=== PATIENT | female | born 1970 | race Caucasian/White ===

== ENCOUNTER 2021-10-24 16:16 | Outpatient (REF) | payer OTHER, SELFPAY ==
[2021-10-26 11:51] LABS: COVID-19 RT-PCR UVMMC Result Negative (Negative)
== END 2021-10-24 16:17 | disposition home or self-care (01) ==
LOC: LBN 16:16
PROVIDERS: Visit Provider Nurse Practitioner Family
DX: Z20.822 Contact with and (suspected) exposure to COVID-19 (principal)
CPT/HCPCS: U0003

== ENCOUNTER 2021-10-24 16:47 | Emergency (ER) | payer OTHER, SELFPAY ==
[2021-10-24 16:52] VITALS: BP 149/92; PULSE 84; RESP 16; TEMP 36.3; O2SAT 100
--- NOTE | 2021-10-24 17:01 | ED.GENADUL_ITS ---
Discharge Plan Disposition Patient Disposition: HOME Condition: Improving Discharge Details Clinical Impression: Abdominal pain, Nausea, vomiting, and diarrhea Primary Care Provider: Unknown,Unknown ED Provider: Sandip Ryder Home Meds and New Rx's Prescriptions: New ondansetron HCl [Zofran] 4 mg tablet 4 mg PO Q8H PRNQty: 10 RF: 0 dicyclomine 20 mg tablet 20 mg PO QID Qty: 10 RF: 0 oxycodone-acetaminophen [Percocet] 5-325 mg tablet 1 tab PO Q8H PRNQty: 8 RF: 0 Continued omeprazole 10 mg Capsule,Delayed Release(Dr/Ec) 10 mg PO DAILY RF: 0 atorvastatin 20 mg Tablet 20 mg PO DAILY RF: 0 Discharge Instructions Instructions: Acute Nausea and Vomiting (ED), Acute Diarrhea (ED), Abdominal Pain (ED) Additional Instructions: Zofran, Bentyl, Percocet as directed, remember Percocet may cause drowsiness. You may also take [id number] Imodium as directed. Plenty of fluids to avoid dehydration. Clear liquid diet over the next 1-2 days. After that you may advance slowly to bananas, rice, applesauce, tea, toast. Please watch for new or worsening symptoms and return to the ER for any concerns. Lastly, I have placed you on the care management list to help expedite outpatient primary care follow-up Discharge Data Discharge Date/Time-TO BE ENTERED AT DEPARTURE: 10/24/21 22:08 Medical Decision Making This is a 51-year-old female who reports diffuse abdominal pain, cramping, nausea vomiting and watery diarrhea that began Friday. Plan is to obtain IV access, CBC, CMP, lipase, lactate, urinalysis, give IV fluid and Zofran. Differential is wide currently with intra-abdominal etiology. Patient reports that she is having more severe abdominal cramping. 2 mg IV morphine given Patient reports this helped greatly with her pain, she is now resting comfortably. No nausea whatsoever. Blood cell count is 10.67, lactate of 2.1. Anion gap of 16.5. Patient does appear clinically dry. She will be given a second liter of IV fluid and plan is to obtain CT imaging of her abdomen and pelvis. Urinalysis reveals ketones, 20-50 white blood cells but many epithelial cells. Patient states that she was unable to really get a good urine sample given her watery stools. She denies any dysuria or hematuria. CT imaging reveals thickening of the distal small bowel and a target sign. Also reveals an incidental renal cyst, recommend outpatient ultrasound. Lastly there was mention of her uterus, patient reports hysterectomy. I personally spoke with the radiologist who reports that sometimes it can be normal to have some residual uterine tissue but recommend if she continues to have symptoms a short-term MRI of the pelvis for further evaluation. Repeat lactate is now down to 1.0 and her anion gap closing, now down to 12.5. Case discussed with Dr. Barrett, surgery, aware of the CT finding and laboratory values. She believes that we should treat this as a viral gastroenteritis, clear liquid diet over the next 24-48 hours, then advance to the FLORIN diet. I will provide a single dose of Bentyl now. Patient does report that her cramping is returning, she will also be given 2 mg IV morphine. I will give her a prescription for Zofran and Percocet. We did discuss her incidental findings of the cyst in the potential uterine tissue and she does understand that outpatient MRI and/or ultrasound will be likely indicated through her primary care provider. I did place her on the care management list to help expedite establishing local primary care outpatient follow-up as she did recently moved to the area. Patient once again reports significant improvement of her discomfort with the IV morphine. Clinically she appears well, nontoxic, remains afebrile and hemodynamically stable. Strict discharge and return precautions. This documentation was generated using [email or web address] dictation system, please disregard any oddities of phrase or misspellings. Imaging Data Radiologic Study: Attestation: I personally reviewed and interpreted this imaging study as follows: Imaging: CT Scan Radiologist's impression: Addendum created by Guilelrmo Gandhi MD on 10/24/2021 7:38 PM Eastern Time ([place] & [place]): Discussed findings with RAFFI Ryder the states patient has a history of hysterectomy. There is a 52 x 30 mm soft tissue density within the inferior pelvis posterior to the marginally filled bladder of unclear etiology. Recommend short-term MRI pelvis with contrast to better evaluate. Initial Report created on 10/24/2021 7:06 PM Eastern Time ([place] & [place]): PROCEDURE INFORMATION: Exam: CT Abdomen And Pelvis With Contrast Exam date and time: 10/24/2021 5:40 PM Age: 51 years old Clinical indication: Other: Abd pain, n/v/d TECHNIQUE: Imaging protocol: Computed tomography of the abdomen and pelvis with contrast. Radiation optimization: All CT scans at this facility use at least one of these dose optimization techniques: automated exposure control; mA and/or kV adjustment per patient size (includes targeted exams where dose is matched to clinical indication); or iterative reconstruction. Contrast material: OMNIPAQUE 350; Contrast volume: 100 ml; Contrast route: INTRAVENOUS (IV); COMPARISON: No relevant prior studies available. FINDINGS: Lung base: Unremarkable. Distal mediastinum: Unremarkable. Liver: There is diffuse decreased hepatic attenuation most concerning for hepatic steatosis. No hepatic mass or cyst. Gallbladder and bile ducts: No gallstones. No intra or extrahepatic ductal dilatation. Pancreas: Unremarkable. No pancreatic ductal dilatation. KELLEY PLEITEZLINE Preliminary Radiology Report ASSOCIATE SOFTWARE APPLICATION ENGINEER (QA) DISCREPANCY? If there is a discrepancy between the preliminary and final interpretation, please notify [facility] [employer] via [email or web address]. If you do not have access to our QA portal, call our QA team at [phone] CONFIDENTIALITY STATEMENT This report is intended only for the use of the referring physician, and only in accordance with law, If you received this in error, call [phone] Page 2 of 2 Spleen: No splenomegaly. Adrenal glands: Unremarkable. Kidneys and ureters: Within the superior pole of the right kidney is a partially exophytic 11 mm hypodensity with Hounsfield attenuation of 27, finding not consistent with simple fluid. No nephrolith, hydronephrosis or other renal mass/cyst. Ureters are normal in course, dimension and are without evidence filling defects. Stomach and bowel: Stomach is mildly distended with enteric content. The target sign is apparent with thickening of the distal loops of the distal small bowel, series 5 images 458 through 687 to approximately 8 mm, series 5, image 547 with adjacent fluid/edema. Appendix: Unremarkable with diameter of 6 mm. Intraperitoneal space: No free air. Small amount of free fluid is seen within the right pericolic gutter, adjacent to the distal small bowel and within the pelvis. Vasculature: No aneurysm. There is mild atherosclerotic calcification and athe romatous plaque within the abdominal aorta. Lymph nodes: No lymphadenopathy. Urinary bladder: Marginally filled. Reproductive: Uterus is slightly to patient's left. Ovaries not definitively identified. Bones/joints: No acute osseous injury or underlying osseous mass. Soft tissues: Unremarkable. IMPRESSION: 1. Thickening of the distal small bowel with target sign. This can be seen in any inflammatory disease of the bowel to include ulcerative colitis, C difficile colitis, radiation colitis or ischemic bowel disease. 2. Partially exophytic 11 mm right renal hypodensity which may represent a m inimally proteinaceous/hemorrhagic cyst. Recommend ultrasound evaluation in 3 months. 3. Free fluid. HPI General Mode of arrival: ambulatory . Date/Time Provider Initiated Documentation: 10/24/21 17:00 . Limitations to Documentation: no limitations . Information obtained by: patient . HPI Narrative: This is a 51-year-old female, past medical history of hyperlipidemia, GERD, partial hysterectomy, presenting to the ER for evaluation of abdominal cramping worse in the lower quadrants, nausea, vomiting, diarrhea since Friday evening, concern for dehydration. She was seen at [facility] and sent to the ER for further evaluation. Patient states that she is fully vaccinated, denies recent sick exposure, travel or bad food exposure. She denies fever, chest pain, shortness of breath, back pain, dysuria. She denies any black tarry stools or bright red blood in her stools. She states that she has had extremely watery diarrhea over the past few days. Denies any fsup-zah-hivwabz medications. Patient has never had symptoms like this previously. Reports that the pain is fairly constant, mild to moderate in nature but she does have occasional crampy severe waves of discomfort. Related Data Home Medications Medication Instructions Recorded Confirmed atorvastatin 20 mg PO DAILY 10/24/21 10/24/21 dicyclomine 20 mg PO QID #10 tab 10/24/21 omeprazole 10 mg PO DAILY 10/24/21 10/24/21 ondansetron HCl [Zofran] 4 mg PO Q8H PRN #10 tab 10/24/21 oxycodone-acetaminophen [Percocet] 1 tab PO Q8H PRN #8 tab 10/24/21 Previous Rx's Medication Instructions Recorded dicyclomine 20 mg PO QID #10 tab 10/24/21 ondansetron HCl [Zofran] 4 mg PO Q8H PRN #10 tab 10/24/21 oxycodone-acetaminophen [Percocet] 1 tab PO Q8H PRN #8 tab 10/24/21 Allergies Allergy/AdvReac Type Severity Reaction Status Date / Time No Known Allergies Allergy Verified 10/24/21 16:57 General Stated Complaint: Abd Prob LORIN: 3 Review of Systems Constitutional Constitutional: Reports fatigue, Denies fever(s) and Reports weakness (Generalized) Cardiovascular Cardiovascular: Denies chest pain and Denies dyspnea Respiratory Respiratory: Denies cough and Denies dyspnea Gastrointestinal Gastrointestinal: Reports abdominal pain, Reports diarrhea, Reports nausea and Reports vomiting Genitourinary Genitourinary: Denies dysuria Musculoskeletal Musculoskeletal: Denies back pain Integumentary/Breasts Skin/Breast: Denies rash Neurologic Neurologic: Reports weakness (Generalized) Endocrine Endocrine: Reports fatigue [facility] Active Problem List (Updated 10/24/21 @ 21:57 by RAFFI Chu) Abdominal pain (Acute) Nausea, vomiting, and diarrhea (Acute) Social History Smoking/Tobacco Use Status: Never Smoking risk assessment performed?: Yes Substance use type: does not use Exam Const General: cooperative, healthy appearing, comfortable and no acute distress Orientation: alert and awake [facility] Head: normal to inspection, normocephalic and atraumatic Mouth: moist mucous membranes abnormal (Dry) Eyes General: appearance normal, both eyes and all related structures Conjunctivae: conjunctivae normal Neck Neck: normal visual inspection, trachea midline and supple Resp Effort & Inspection: normal respiratory effort and able to speak in complete sentences Auscultation: clear to auscultation bilaterally Cardio Rate: regular rate Rhythm: regular rhythm GI Inspection: normal to inspection Palpation: soft, not firm, no guarding, no pulsatile masses and tender (Diffuse, worse in the lower quadrants) not at McBurney's point, Stockton's sign negative and with no rebound tenderness Auscultation: normal bowel sounds Back/Spine/Pelvis Back: No back tenderness Skin General skin exam: no rashes or lesions noted Neuro General: patient alert, patient awake, moves all extremities and no focal motor deficits Cognition: normal cognition Speech: speech normal Gait: normal gait Motor: muscle tone normal throughout Sensory Exam: no sensory deficits noted Extrem General: normal to inspection and full ROM Psych Appearance: grossly normal Mental Status: mental status grossly normal Course Vital Signs Vital signs: Vital Signs Temperature 36.3 C L 10/24/21 16:52 Pulse 84 10/24/21 16:52 Respiratory Rate 16 10/24/21 16:52 Blood Pressure 149/92 H 10/24/21 16:52 Pulse Oximetry 100 10/24/21 16:52 Temperature 36.3 C L 10/24/21 16:52 Temperature Source Skin 10/24/21 16:52 Pulse 84 10/24/21 16:52 Respiratory Rate 16 10/24/21 16:52 Respiratory Effort Non-Labored 10/24/21 16:52 Blood Pressure 149/92 H 10/24/21 16:52 Pulse Oximetry 100 10/24/21 16:52 Oxygen Delivery Method Room Air 10/24/21 16:52 Oxygen Flow Rate 0 10/24/21 16:52 Pain Level 10 10/24/21 16:52 PAWSS Have you Been Recently Intoxicated or Drunk Within the Last 30 days?: Yes Have you Ever Experienced Previous Episodes of Alcohol Withdrawal?: No Have you ever Experienced Withdrawal Seizures?: No Have you ever Experienced Delirium Tremens(DT)s?: No Have you ever undergone Alcohol Rehabilitation Treatment (i.e, inpt ot outpatient treatment programs)?: No Have you ever Experienced Blackouts?: No Have you ever Combined Alcohol with other Downers within the last 90 days?: No Have you ever Combined Alcohol with any other Substance of Abuse during the last 90 days?: No Positive Blood Alcohol level on Presentation? [PCS.BAL]: No Evidence of Increased Autonomic Activity (i.e. HR>120, tremor, sweating, agitation, nausea)?: No Result: 1
[2021-10-24 17:20] LABS: Lactate 2.1 mmol/L (0.6-1.4)
[2021-10-24 17:22] LABS: Abs Immature Grans 0.03 10^3/uL (0.0-0.06); Absolute Basophil Count 0.04 10^3/uL (0.0-0.2); Absolute Eosinophil Count 0.04 10^3/uL (0.0-0.7); Absolute Lymphocyte Count 2.82 10^3/uL (1.2-3.4); Absolute Neutrophil Count 6.84 10^3/uL (1.2-6.7); Basophils % 0.4; Eosinophils % 0.4; HCT 46.9 % (36.0-46.0); HGB 16.2 g/dL (11.2-15.7); Immature Grans % 0.3; Lymphocytes % 26.4; MCH 32.2 pg (27.0-33.0); MCHC 34.5 % (32.0-36.0); MCV 93.2 fL (80-95); MPV 9.9 fL (8.0-11.0); Monocytes % 8.4; Neutrophils % 64.1; Nucleated RBC 0 %; Platelet Count 263 10^3/uL (130-400); RBC 5.03 10^6/uL (3.93-5.22); RDW 11.3 % (11.7-14.6); RDW-SD 38.5 fL; WBC 10.67 10^3/uL (4.4-10.8)
--- NOTE | 2021-10-24 17:25 | NUR.NOTE ---
Nursing Note: Pt instructed on giving urine sample, request to try on bedside commode, states for the past days I have not been able to urinate just have bowel movements, provider aware, pt is attempting to give sample.
[2021-10-24 17:35] LABS: ALT 155 U/L (14-59); AST 119 U/L (15-37); Alkaline Phosphatase 62 U/L (46-116); Anion Gap 16.3 mmol/L (3-11); BUN 16 mg/dL (7-18); CO2 18.7 mmol/L (21.0-32.0); CREATININE 0.9 mg/dL (0.55-1.02); Calcium 9.5 mg/dL (8.5-10.1); Chloride 99 mmol/L (98-107); Glucose 154 mg/dL (74-106); Lipase 107 U/L (73-393); Potassium 4.2 mmol/L (3.5-5.1); Sodium 134 mmol/L (136-145); Total Protein 8.7 g/dL (6.4-8.2)
[2021-10-24] MEDS: Normal Saline 1,000 ML 1000 ML IV ×2 (17:52→18:47)
[2021-10-24] MEDS: Ondansetron 4 MG/2 ML VIAL IVP (17:53)
--- NOTE | 2021-10-24 18:06 | NUR.NOTE ---
Pt to CT via stretcher w/tech, IVF discontinued for exam.
[2021-10-24 18:10] LABS: Bilirubin Moderate (Negative); Blood Negative (Negative); Clarity Clear (Clear); Glucose Negative (Negative); Ketones 40 mg/dL (Negative); Leukocyte Esterase Negative (Negative); Nitrite Negative (Negative); Specific Gravity >= 1.030 (1.005-1.025); Urobilinogen 0.2 EU/dL (Up TO 0.2)
[2021-10-24] MEDS: Omnipaque 350 MG/ML 100 ML BTL IJ (18:22)
[2021-10-24] MEDS: Normal Saline Flush 10 ML SYR IVP (18:23)
--- NOTE | 2021-10-24 18:23 | DI.CT_ITS ---
Exam(s) CT ABDOMEN PELVIS W EXAM: CT ABDOMEN PELVIS W CLINICAL HISTORY: abd pain, n/v/d. TECHNIQUE: Imaging Protocol: Axial computed tomography images with coronal and sagittal reformatted images were created and reviewed CONTRAST MATERIAL: Intravenous: Omnipaque 100cc Oral: None COMPARISON: No exams were available for comparison FINDINGS: VISUALIZED LUNG BASES: No nodules nor pleural effusions evident. ABDOMEN: There is no ascites. LIVER: The liver is diffusely hypodense implying steatosis. There are no discrete focal hepatic lesi ons nor dilatation of intrahepatic ducts GALLBLADDER/BILIARY: No obvious gallbladder pathology. CBD is not dilated. PANCREAS: No evidence of pancreatic mass nor dilatation of the pancreatic duct. SPLEEN: Spleen is not enlarged. No obvious intrasplenic lesions. Splenic and portal veins are paten t. ADRENALS: There are no significant adrenal masses. KIDNEYS:There is a benign exophytic cyst off the posterior cortex of the right kidney which measures 10 x 9 millimeters. No solid renal masses. No calculi nor hydronephrosis.. ABDOMINAL AORTA: Abdominal aorta is not enlarged. Mild narrowing at the origin of the SMA noted. No evidence of embolus within this vessel. Celiac and superior mesenteric arteries are patent. LYMPH NODES:There is no retroperitoneal nor paraaortic adenopathy. ABDOMINAL WALL: No evidence of significant anterior abdominal wall nor inguinal hernia. GI: There are numerous abnormal central and right-sided small bowel loops which are grossly edematous , exhibiting bowel wall thickness of 5-6 millimeters and there is a small amount of ascites in the de pendent aspect of the pelvis. This process extends to the ileocecal valve. Also appears to involve the ascending-right side of the colon. Difficult to assess remainder of the colon as it is collapsed . There is a diverticulum off the lateral wall of the sigmoid in the upper left iliac fossa. No div erticulitis evident. Appendix appears unremarkable. PELVIS: LYMPH NODES: There is no intrapelvic nor inguinal adenopathy. REPRODUCTIVE: Age-appropriate URINARY BLADDER: No calculi nor obvious masses evident OSSEOUS: No significant osseous lesions. IMPRESSION: 1. There is severe edema of large amount of small bowel ileal loops extending to and beyond the ileoc ecal valve and also involving the right side of the colon. There is also some ascites which is relat ed to the bowel loop edema here. Main differential diagnosis would be infectious enteritis, inflamma tory bowel disease severe flare up, ischemic disease, post radiation. Study 1st read by Deng [facility] Findings discussed by myself with the ER physician 10/25/2021 8:25 a.m. RADIATION DOSE DELIVERED: 1,107.4mGy.cm Total DLP DATA REPOSITORY: All CT scans at this facility are submitted to the National Radiology Data Registry (NRDR) Dose Index Registry (DIR) with the [employer] (ACR). RADIATION OPTIMIZATION: All CT scans at this facility use at least one of these dose optimization te chniques: automated exposure control; mA and/or kV adjustment per patient size (includes targeted exa ms where dose is matched to clinical indication); or iterative reconstruction.
[2021-10-24 18:26] LABS: Bacteria Many HPF (Negative); C & S Indicated? No/Sq. Contamination; Casts Negative LPF (Negative); Crystals Moderate Amorphous HPF (Negative); Epithelial Cells Many HPF (Negative); Mucus Heavy (Negative); WBC 20-50 HPF (0-5)
--- NOTE | 2021-10-24 18:27 | NUR.NOTE ---
Nursing Note:Pt return from CT, IVF connected & infusing, reports nausea improved. Pt aware of need for bowel specimen, unable to supply at this time, cont. to monitor.
[2021-10-24 18:29] VITALS: BP 164/78; PULSE 79; RESP 20; TEMP 36.6; O2SAT 98
--- NOTE | 2021-10-24 19:06 | DI.VRAD_ITS ---
Addendum created by Guillermo Gandhi MD on 10/24/2021 7:38:57 PM EST: Discussed findings with RAFFI Ryder the states patient has a history of hysterectomy. There is a 52 x 30 mm soft tissue density within the inferior pelvis posterior to the marginally filled bladder of unclear etiology. Recommend short-term MRI pelvis with contrast to better evaluate. Initial report created on 10/24/2021 7:06:09 PM EST: PROCEDURE INFORMATION: Exam: CT Abdomen And Pelvis With Contrast Exam date and time: 10/24/2021 5:40 PM Age: 51 years old Clinical indication: Other: Abd pain, n/v/d TECHNIQUE: Imaging protocol: Computed tomography of the abdomen and pelvis with contrast. Radiation optimization: All CT scans at this facility use at least one of these dose optimization techniques: automated exposure control; mA and/or kV adjustment per patient size (includes targeted exams where dose is matched to clinical indication); or iterative reconstruction. Contrast material: OMNIPAQUE 350; Contrast volume: 100 ml; Contrast route: INTRAVENOUS (IV); COMPARISON: No relevant prior studies available. FINDINGS: Lung base: Unremarkable. Distal mediastinum: Unremarkable. Liver: There is diffuse decreased hepatic attenuation most concerning for hepatic steatosis. No hepatic mass or cyst. Gallbladder and bile ducts: No gallstones. No intra or extrahepatic ductal dilatation. Pancreas: Unremarkable. No pancreatic ductal dilatation. Spleen: No splenomegaly. Adrenal glands: Unremarkable. Kidneys and ureters: Within the superior pole of the right kidney is a partially exophytic 11 mm hypodensity with Hounsfield attenuation of 27, finding not consistent with simple fluid. No nephrolith, hydronephrosis or other renal mass/cyst. Ureters are normal in course, dimension and are without evidence filling defects. Stomach and bowel: Stomach is mildly distended with enteric content. The target sign is apparent with thickening of the distal loops of the distal small bowel, series 5 images 458 through 687 to approximately 8 mm, series 5, image 547 with adjacent fluid/edema. Appendix: Unremarkable with diameter of 6 mm. Intraperitoneal space: No free air. Small amount of free fluid is seen within the right pericolic gutter, adjacent to the distal small bowel and within the pelvis. Vasculature: No aneurysm. There is mild atherosclerotic calcification and atheromatous plaque within the abdominal aorta. Lymph nodes: No lymphadenopathy. Urinary bladder: Marginally filled. Reproductive: Uterus is slightly to patient's left. Ovaries not definitively identified. Bones/joints: No acute osseous injury or underlying osseous mass. Soft tissues: Unremarkable. IMPRESSION: 1. Thickening of the distal small bowel with target sign. This can be seen in any inflammatory disease of the bowel to include ulcerative colitis, C difficile colitis, radiation colitis or ischemic bowel disease. 2. Partially exophytic 11 mm right renal hypodensity which may represent a minimally proteinaceous/hemorrhagic cyst. Recommend ultrasound evaluation in 3 months. 3. Free fluid. Dictated and Authenticated by: Guillermo Gandhi MD. Ordering:ARIC Oropeza MD
[2021-10-24 19:29] VITALS: TEMP 37
--- NOTE | 2021-10-24 19:41 | NUR.NOTE ---
Nursing Note: Pt mediocated w/IV morphine as ordered for abd pain. Stool sample obtained & sent to lab.
[2021-10-24 20:40] LABS: Anion Gap 12.5 mmol/L (3-11); BUN 13 mg/dL (7-18); CO2 21.5 mmol/L (21.0-32.0); CREATININE 0.8 mg/dL (0.55-1.02); Calcium 8.1 mg/dL (8.5-10.1); Chloride 103 mmol/L (98-107); Glucose 123 mg/dL (74-106); Potassium 3.6 mmol/L (3.5-5.1); Sodium 137 mmol/L (136-145)
[2021-10-24 20:47] VITALS: BP 147/82; PULSE 80; RESP 18; TEMP 36.5; O2SAT 99
--- NOTE | 2021-10-24 20:54 | NUR.NOTE ---
Nursing Note:Pt reports abd pain returned /, medicated as ordered, resting on stretcher, call sahu within reach.
[2021-10-24 21:00] LABS: C Diff PCR Negative (Negative)
[2021-10-24] MEDS: Dicyclomine 20 MG TAB PO (21:50)
[2021-10-24 21:52] VITALS: BP 128/76; PULSE 80; RESP 18; TEMP 36.6; O2SAT 99
[2021-10-24] MEDS: Ondansetron O.D.T. 4 MG TABEF, 3 TABS/BTL PO (21:52)
== END 2021-10-24 22:08 | disposition home or self-care (01) ==
PROVIDERS: Emergency Provider Physician Assistant
DX: R10.9 Unspecified abdominal pain (principal); R11.2 Nausea with vomiting, unspecified; R19.7 Diarrhea, unspecified; R18.8 Other ascites; N28.1 Cyst of kidney, acquired
CPT/HCPCS: 36415; 80048; 80053; 83690; 87493; 96361; 96374; 96375; 96376; 99285; 74177; 81003; 81015; 83605; 85025; 99284; J2405; J3490

== ENCOUNTER 2021-10-25 15:26 | Emergency (ER) | payer OTHER, SELFPAY ==
--- NOTE | 2021-10-25 15:32 | DI.CT_ITS ---
Exam(s) CT ABDOMEN PELVIS WO EXAM: CT ABDOMEN PELVIS WO CLINICAL HISTORY: follow up from ct yesterday, pain, n/v/d. TECHNIQUE: Imaging Protocol: Axial computed tomography images with coronal and sagittal reformatted images were created and reviewed. COMPARISON: CT CT ABDOMEN PELVIS W from 10/24/2021 FINDINGS: ABDOMEN: Lung Bases: Normal where visualized. Liver: Fatty infiltration of the liver. No measurable mass. Hepatomegaly. Gallbladder and biliary tract: No radiodense calculus or biliary ductal dilation. High-density materi al within the gallbladder likely reflecting the iodinated contrast from the prior examination. Pancreas: Normal density, no abnormal calcifications or inflammatory process. Spleen: Normal. Kidneys: Normal size, contour and axis.No radiodense stones or obstructive uropathy. Stable right corey al cyst. No follow-up is recommended. Adrenal glands: No mass is seen. Lymph nodes: Mildly enlarged lymph nodes in the right lower quadrant which are likely reactive. Abdominal Aorta: Abdominal portion non-dilated. Atherosclerosis. PELVIS: Bladder:Incompletely distended but grossly unremarkable. Bowel: No evidence of obstruction. There is persistent thickening of the wall of the terminal ileum and distal small bowel. There may be involvement of the cecum and a portion of the ascending colon. No evidence of appendicitis. There is no pneumatosis or mesenteric venous gas. Peritoneal cavity: There is a small amount of pelvic ascites. There is a small amount of fluid in th e right pericolic gutter. No free air. Reproductive organs: Per the patient there has been a prior hysterectomy. There is a persistent soft tissue density in the inferior pelvis posterior to the bladder of unclear etiology. Pelvic ultrasou nd may be considered for further evaluation. Bones: Within normal limits. Soft Tissues: Within normal limits. IMPRESSION: 1. Persistent bowel wall thickening involving the distal small bowel, terminal ileum and proximal col on. Inflammatory or infectious bowel disease is favored. Lymphoma or lymphoproliferative disease ca nnot be excluded. No evidence of bowel obstruction. 2. Hepatomegaly and hepatic steatosis. 3. Pelvic ascites which may be slightly increased compared to the prior examination. 4. Pelvic soft tissue mass is again seen. This may represent a subtotal hysterectomy. Pelvic ultras ound or MRI may be considered for further evaluation. RADIATION DOSE DELIVERED: 1,112.01mGy.cm Total DLP DATA REPOSITORY: All CT scans at this facility are submitted to the National Radiology Data Registry (NRDR) Dose Index Registry (DIR) with the [employer] (ACR). RADIATION OPTIMIZATION: All CT scans at this facility use at least one of these dose optimization te chniques: automated exposure control; mA and/or kV adjustment per patient size (includes targeted exa ms where dose is matched to clinical indication); or iterative reconstruction.
[2021-10-25 15:34] VITALS: BP 133/72; PULSE 83; RESP 16; TEMP 36.5; O2SAT 96
[2021-10-25 16:07] LABS: Bilirubin Small (Negative); Blood Trace-intact (Negative); Clarity Cloudy (Clear); Glucose Negative (Negative); Ketones 40 mg/dL (Negative); Leukocyte Esterase Small (Negative); Nitrite Negative (Negative); Specific Gravity >= 1.030 (1.005-1.025); Urobilinogen 0.2 EU/dL (Up TO 0.2)
[2021-10-25 16:18] LABS: Abs Immature Grans 0.01 10^3/uL (0.0-0.06); Absolute Basophil Count 0.04 10^3/uL (0.0-0.2); Absolute Eosinophil Count 0.17 10^3/uL (0.0-0.7); Absolute Lymphocyte Count 2.64 10^3/uL (1.2-3.4); Absolute Monocyte Count 0.86 10^3/uL (0.1-0.8); Absolute Neutrophil Count 4.66 10^3/uL (1.2-6.7); Basophils % 0.5; HCT 42.5 % (36.0-46.0); HGB 14.3 g/dL (11.2-15.7); Immature Grans % 0.1; Lymphocytes % 31.5; MCH 32.4 pg (27.0-33.0); MCHC 33.6 % (32.0-36.0); MCV 96.2 fL (80-95); MPV 9.7 fL (8.0-11.0); Monocytes % 10.3; Neutrophils % 55.6; Nucleated RBC 0 %; Platelet Count 233 10^3/uL (130-400); RBC 4.42 10^6/uL (3.93-5.22); RDW 11.4 % (11.7-14.6); WBC 8.38 10^3/uL (4.4-10.8)
[2021-10-25 16:23] LABS: Bacteria Many HPF (Negative); C & S Indicated? No/Sq. Contamination; Crystals Negative HPF (Negative); Epithelial Cells Many HPF (Negative); Mucus Negative (Negative); RBC 0-2 HPF (0-2); WBC >50 HPF (0-5)
[2021-10-25 16:33] LABS: ALT 126 U/L (14-59); AST 79 U/L (15-37); Albumin 3.4 g/dL (3.4-5.0); Alkaline Phosphatase 53 U/L (46-116); Anion Gap 9.6 mmol/L (3-11); BUN 10 mg/dL (7-18); CO2 24.4 mmol/L (21.0-32.0); CREATININE 0.8 mg/dL (0.55-1.02); Calcium 8.6 mg/dL (8.5-10.1); Chloride 102 mmol/L (98-107); Glucose 134 mg/dL (74-106); Lipase 210 U/L (73-393); Potassium 3.5 mmol/L (3.5-5.1); Sodium 136 mmol/L (136-145); Total Protein 7.2 g/dL (6.4-8.2)
[2021-10-25] MEDS: Ondansetron 4 MG/2 ML VIAL (16:55)
[2021-10-25] MEDS: Ketorolac 30 MG/ML VIAL IVP (17:00)
--- NOTE | 2021-10-25 17:00 | W.ED.GENAD ---
Discharge Plan Disposition Patient Disposition: HOME Condition: Stable Discharge Details Clinical Impression: Enteritis Primary Care Provider: Unknown,Unknown ED Provider: Kandis Stern Home Meds and New Rx's Prescriptions: Continued omeprazole 10 mg Capsule,Delayed Release(Dr/Ec) 10 mg PO DAILY RF: 0 atorvastatin 20 mg Tablet 20 mg PO DAILY RF: 0 ondansetron HCl [Zofran] 4 mg tablet 4 mg PO Q8H PRNQty: 10 RF: 0 dicyclomine 20 mg tablet 20 mg PO QID Qty: 10 RF: 0 oxycodone-acetaminophen [Percocet] 5-325 mg tablet 1 tab PO Q8H PRNQty: 8 RF: 0 Discharge Instructions Instructions: Enteritis (ED) Additional Instructions: clear liquids, advance as tolerated Stand Alone Forms: Work Release Referrals: Miranda Hoffman DO [OSTEOPATHIC DOCTOR] - Medical Decision Making inital orders placed by Farnaz Ryder who saw patient yesterday and discussed case with Dr Hoffman. On her recommendation he has ordered a ct scan with oral contrast only. after drinking one bottle of oral contrast developed worsening abdominal pain and nausea and had 2 bouts of diarrhea. Medical Records Medical records reviewed: Yes I reviewed the patient's medical records. Imaging Data Radiologic Study: Imaging: CT Scan Radiologist's impression: Exam(s) PROCEDURE INFORMATION: Exam: CT Abdomen And Pelvis Without Contrast Exam date and time: 10/25/2021 5:41 PM Age: 51 years old Clinical indication: Other: F/u form CT yesterday, pain n/v/d TECHNIQUE: Imaging protocol: Computed tomography of the abdomen and pelvis without contrast. COMPARISON: CT ABDOMEN PELVIS W 10/24/2021 6:13 PM FINDINGS: Lungs: Lung bases are clear. Liver: Liver attenuation is low. Negative for mass or abscess. The liver is large, 21 cm in length. Gallbladder and bile ducts: Hyperattenuating material present in the gallbladder, likely contrast from yesterday's exam. No inflammatory change. No ductal dilatation. Pancreas: Normal. No ductal dilation. Spleen: Normal. No splenomegaly. Adrenal glands: Normal. No mass. Kidneys and ureters: Normal. No hydronephrosis. Stomach and bowel: Stomach is collapsed. Small bowel is not dilated. Enteric contrast is administered for the today's exam, and extends through the small bowel and throughout the colon. There is marked wall thickening in the distal ileum, involving approximately 50 cm of the distal bowel. Wall thickening measures up to 0.9 cm. The abnormal wall thickening extends to the ileocecal valve. There is mild adjacent fat stranding and free fluid. The ileocecal valve is mildly hypertrophy. The colonic yusuf are normal in thickness, and there are no focal inflammatory changes in the colon. Appendix: Normal appendix. Intraperitoneal space: Mild free fluid noted in the pelvis and right pericolic gutter, mildly increased from yesterday. Negative for intraperitoneal free air. Negative for abscess. Para negative for portal venous gas. Vasculature: Negative for aneurysm. Mild vascular calcifications. Lymph nodes: Mild mesenteric lymphadenopathy noted in the right lower quadrant. Negative for suspicious retroperitoneal lymphadenopathy. Urinary bladder: Unremarkable as visualized. Reproductive: A soft tissue structure is again noted in the pelvis at the upper vagina between the bladder and rectum. This is unchanged from previous. Both ovaries are visible and appear normal, without cyst or mass. Bones/joints: Unremarkable. No acute fracture. Soft tissues: Negative for abdominal wall hernia or fluid collection. IMPRESSION: 1. Severe enteritis, distal/terminal ileum. Inflammatory bowel disease or infectious enteritis favored. Lymphoma or lymphoproliferative disease not excluded. Ischemia is not excluded, however there is no significant progression and no secondary signs to suggest ischemia such as pneumatosis or mesenteric venous gas. 2. Follow-up to imaging resolution or tissue diagnosis is recommended. The disease involves the terminal ileum, and may be accessible through colonoscopy. 3. Negative for bowel obstruction. 4. Mild increased fat stranding and free fluid from yesterday's exam. 5. Hepatic steatosis, severe. 6. Pelvic soft tissue mass may represent postoperative changes from subtotal hysterectomy and retention of the cervix. Correlate clinically for operative technique. If the cervix has been removed, a careful pelvic physical exam and pelvic MRI are recommended for mass characterisation. Transvaginal ultrasound may be of benefit, but may not add additional information over the CT. Dictated and Authenticated by: Jayesh Jerome MD. Ordering:ARIC Oropeza MD Lab Data Lab results reviewed: Yes I reviewed the patient's lab results. Labs: Laboratory Results - last 24 hr 10/25/21 10/25/21 10/25/21 15:55 16:05 16:05 WBC RBC Hgb Hct MCV MCH MCHC RDW Plt Count MPV Immature Gran % Neutrophils % Lymphocytes % Monocytes % Eosinophils % Basophils % Nucleated RBC % Absolute Neutrophils Absolute Lymphocytes Absolute Monocytes Absolute Eosinophils Absolute Basophils VBG Lactate 1.0 Sodium 136 Potassium 3.5 Chloride 102 Carbon Dioxide 24.4 Anion Gap 9.6 BUN 10 Creatinine 0.8 Estimated GFR/1.73 m2 >= 60.00 Glucose 134 H Calcium 8.6 Total Bilirubin 1.0 AST 79 H ALT 126 H Alkaline Phosphatase 53 Total Protein 7.2 Albumin 3.4 Lipase 210 Urine Color Stacia Urine Clarity Cloudy Urine pH 6.0 Ur Specific [place] >= 1.030 H Urine Protein 30 H Urine Ketones 40 H Urine Blood Trace-intact H Urine Nitrite Negative Urine Bilirubin Small H Urine Urobilinogen 0.2 Ur Leukocyte Esterase Small H Urine RBC 0-2 Urine WBC >50 H Ur Epithelial Cells Many Urine Crystals Negative Urine Bacteria Many Urine Mucus Negative Ur Culture Indicated? No/Sq. Contamination Urine Glucose Negative 10/25/21 16:05 WBC 8.38 RBC 4.42 Hgb 14.3 Hct 42.5 MCV 96.2 H D MCH 32.4 MCHC 33.6 RDW 11.4 L Plt Count 233 MPV 9.7 Immature Gran % 0.1 Neutrophils % 55.6 Lymphocytes % 31.5 Monocytes % 10.3 Eosinophils % 2.0 Basophils % 0.5 Nucleated RBC % 0 Absolute Neutrophils 4.66 Absolute Lymphocytes 2.64 Absolute Monocytes 0.86 H Absolute Eosinophils 0.17 Absolute Basophils 0.04 VBG Lactate Sodium Potassium Chloride Carbon Dioxide Anion Gap BUN Creatinine Estimated GFR/1.73 m2 Glucose Calcium Total Bilirubin AST ALT Alkaline Phosphatase Total Protein Albumin Lipase Urine Color Urine Clarity Urine pH Ur Specific [place] Urine Protein Urine Ketones Urine Blood Urine Nitrite Urine Bilirubin Urine Urobilinogen Ur Leukocyte Esterase Urine RBC Urine WBC Ur Epithelial Cells Urine Crystals Urine Bacteria Urine Mucus Ur Culture Indicated? Urine Glucose HPI General Date/Time Provider Initiated Documentation: 10/25/21 15:32. Limitations to Documentation: no limitations. Information obtained by: patient. HPI Narrative: patient returns to ED after instructed to based on change in previous days imaging report. patient reports that she is feeling better overall. Related Data Home Medications Medication Instructions Recorded Confirmed atorvastatin 20 mg PO DAILY 10/24/21 10/25/21 dicyclomine 20 mg PO QID #10 tab 10/24/21 10/25/21 omeprazole 10 mg PO DAILY 10/24/21 10/25/21 ondansetron HCl [Zofran] 4 mg PO Q8H PRN #10 tab 10/24/21 10/25/21 oxycodone-acetaminophen [Percocet] 1 tab PO Q8H PRN #8 tab 10/24/21 10/25/21 Previous Rx's Medication Instructions Recorded dicyclomine 20 mg PO QID #10 tab 10/24/21 ondansetron HCl [Zofran] 4 mg PO Q8H PRN #10 tab 10/24/21 oxycodone-acetaminophen [Percocet] 1 tab PO Q8H PRN #8 tab 10/24/21 Allergies Allergy/AdvReac Type Severity Reaction Status Date / Time No Known Allergies Allergy Verified 10/25/21 15:38 General Stated Complaint: Abd Prob LORIN: 3 Review of Systems All systems reviewed & are unremarkable except as noted in HPI and below PFSH Active Problem List (Updated 10/25/21 @ 20:42 by Kandis Stern NP) Abdominal pain (Acute) Nausea, vomiting, and diarrhea (Acute) Enteritis (Acute) Social History Smoking/Tobacco Use Status: Never Smoking risk assessment performed?: Yes Substance use type: does not use Exam Const General: cooperative, healthy appearing, comfortable and acute distress mild Nutritional Appearance: overweight Orientation: alert, awake and oriented x3 HENMT Head: normal to inspection, normocephalic and atraumatic Mouth: oral mucosae normal Resp Effort & Inspection: normal respiratory effort Auscultation: clear to auscultation bilaterally Cardio Rate: regular rate Rhythm: regular rhythm GI Inspection: normal to inspection Palpation: no guarding and tender Skin General skin exam: no rashes or lesions noted Neuro General: patient alert, patient awake and patient oriented x3 Cognition: normal cognition Speech: speech normal Gait: normal gait Extrem General: normal to inspection, full ROM and no pedal edema Course Vital Signs Vital signs: Vital Signs Temperature 36.5 C 10/25/21 15:34 Pulse 83 10/25/21 15:34 Respiratory Rate 16 10/25/21 15:34 Blood Pressure 133/72 10/25/21 15:34 Pulse Oximetry 96 10/25/21 15:34 Temperature 36.5 C 10/25/21 15:34 Temperature Source Skin 10/25/21 15:34 Pulse 83 10/25/21 15:34 Respiratory Rate 16 10/25/21 15:34 Respiratory Effort Non-Labored 10/25/21 15:34 Blood Pressure 133/72 10/25/21 15:34 Blood Pressure Position Sitting 10/25/21 15:34 Pulse Oximetry 96 10/25/21 15:34 Oxygen Delivery Method Room Air 10/25/21 15:34 Oxygen Flow Rate 0 10/25/21 15:34 Pain Level 7 10/25/21 15:34 Lab/Test Results Lab/Test Results: Laboratory Tests Range/Units 10/25/21 10/25/21 10/25/21 15:55 16:05 16:05 WBC (4.4-10.8) 10^3/uL RBC (3.93-5.22) 10^6/uL Hgb (11.2-15.7) g/dL Hct (36.0-46.0) % MCV (80-95) fL MCH (27.0-33.0) pg MCHC (32.0-36.0) % RDW (11.7-14.6) % Plt Count (130-400) 10^3/uL MPV (8.0-11.0) fL Immature Gran % Neutrophils % Lymphocytes % Monocytes % Eosinophils % Basophils % Nucleated RBC % % Absolute Neutrophils (1.2-6.7) 10^3/uL Absolute Lymphocytes (1.2-3.4) 10^3/uL Absolute Monocytes (0.1-0.8) 10^3/uL Absolute Eosinophils (0.0-0.7) 10^3/uL Absolute Basophils (0.0-0.2) 10^3/uL VBG Lactate (0.6-1.4) mmol/L 1.0 Sodium (136-145) mmol/L 136 Potassium (3.5-5.1) mmol/L 3.5 Chloride (98-107) mmol/L 102 Carbon Dioxide (21.0-32.0) mmol/L 24.4 Anion Gap (3-11) mmol/L 9.6 BUN (7-18) mg/dL 10 Creatinine (0.55-1.02) mg/dL 0.8 Estimated GFR/1.73 m2 (mL/min/1.73m2) >= 60.00 Glucose (74-106) mg/dL 134 H Calcium (8.5-10.1) mg/dL 8.6 Total Bilirubin (0.2-1.0) mg/dL 1.0 AST (15-37) U/L 79 H ALT (14-59) U/L 126 H Alkaline Phosphatase (46-116) U/L 53 Total Protein (6.4-8.2) g/dL 7.2 Albumin (3.4-5.0) g/dL 3.4 Lipase (73-393) U/L 210 Urine Color (Yellow) Stacia Urine Clarity (Clear) Cloudy Urine pH (5-8) 6.0 Ur Specific [place] (1.005-1.025) >= 1.030 H Urine Protein (Negative) mg/dL 30 H Urine Ketones (Negative) mg/dL 40 H Urine Blood (Negative) Trace-intact H Urine Nitrite (Negative) Negative Urine Bilirubin (Negative) Small H Urine Urobilinogen (Up TO 0.2) EU/dL 0.2 Ur Leukocyte Esterase (Negative) Small H Urine RBC (0-2) HPF 0-2 Urine WBC (0-5) HPF >50 H Ur Epithelial Cells (Negative) HPF Many Urine Crystals (Negative) HPF Negative Urine Bacteria (Negative) HPF Many Urine Mucus (Negative) Negative Ur Culture Indicated? No/Sq. Contamination Urine Glucose (Negative) mg/dL Negative Range/Units 10/25/21 16:05 WBC (4.4-10.8) 10^3/uL 8.38 RBC (3.93-5.22) 10^6/uL 4.42 Hgb (11.2-15.7) g/dL 14.3 Hct (36.0-46.0) % 42.5 MCV (80-95) fL 96.2 H D MCH (27.0-33.0) pg 32.4 MCHC (32.0-36.0) % 33.6 RDW (11.7-14.6) % 11.4 L Plt Count (130-400) 10^3/uL 233 MPV (8.0-11.0) fL 9.7 Immature Gran % 0.1 Neutrophils % 55.6 Lymphocytes % 31.5 Monocytes % 10.3 Eosinophils % 2.0 Basophils % 0.5 Nucleated RBC % % 0 Absolute Neutrophils (1.2-6.7) 10^3/uL 4.66 Absolute Lymphocytes (1.2-3.4) 10^3/uL 2.64 Absolute Monocytes (0.1-0.8) 10^3/uL 0.86 H Absolute Eosinophils (0.0-0.7) 10^3/uL 0.17 Absolute Basophils (0.0-0.2) 10^3/uL 0.04 VBG Lactate (0.6-1.4) mmol/L Sodium (136-145) mmol/L Potassium (3.5-5.1) mmol/L Chloride (98-107) mmol/L Carbon Dioxide (21.0-32.0) mmol/L Anion Gap (3-11) mmol/L BUN (7-18) mg/dL Creatinine (0.55-1.02) mg/dL Estimated GFR/1.73 m2 (mL/min/1.73m2) Glucose (74-106) mg/dL Calcium (8.5-10.1) mg/dL Total Bilirubin (0.2-1.0) mg/dL AST (15-37) U/L ALT (14-59) U/L Alkaline Phosphatase (46-116) U/L Total Protein (6.4-8.2) g/dL Albumin (3.4-5.0) g/dL Lipase (73-393) U/L Urine Color (Yellow) Urine Clarity (Clear) Urine pH (5-8) Ur Specific [place] (1.005-1.025) Urine Protein (Negative) mg/dL Urine Ketones (Negative) mg/dL Urine Blood (Negative) Urine Nitrite (Negative) Urine Bilirubin (Negative) Urine Urobilinogen (Up TO 0.2) EU/dL Ur Leukocyte Esterase (Negative) Urine RBC (0-2) HPF Urine WBC (0-5) HPF Ur Epithelial Cells (Negative) HPF Urine Crystals (Negative) HPF Urine Bacteria (Negative) HPF Urine Mucus (Negative) Ur Culture Indicated? Urine Glucose (Negative) mg/dL PAWSS Have you Been Recently Intoxicated or Drunk Within the Last 30 days?: No Have you Ever Experienced Previous Episodes of Alcohol Withdrawal?: No Have you ever Experienced Withdrawal Seizures?: No Have you ever Experienced Delirium Tremens(DT)s?: No Have you ever undergone Alcohol Rehabilitation Treatment (i.e, inpt ot outpatient treatment programs)?: No Have you ever Experienced Blackouts?: No Have you ever Combined Alcohol with other Downers within the last 90 days?: No Have you ever Combined Alcohol with any other Substance of Abuse during the last 90 days?: No Positive Blood Alcohol level on Presentation? [PCS.BAL]: No Evidence of Increased Autonomic Activity (i.e. HR>120, tremor, sweating, agitation, nausea)?: No Result: 0
[2021-10-25] MEDS: HYDROmorphone 2 MG/ML VIAL 0.5 MG IVP (19:09)
--- NOTE | 2021-10-25 19:28 | DI.VRAD_ITS ---
PROCEDURE INFORMATION: Exam: CT Abdomen And Pelvis Without Contrast Exam date and time: 10/25/2021 5:41 PM Age: 51 years old Clinical indication: Other: F/u form CT yesterday, pain n/v/d TECHNIQUE: Imaging protocol: Computed tomography of the abdomen and pelvis without contrast. COMPARISON: CT ABDOMEN PELVIS W 10/24/2021 6:13 PM FINDINGS: Lungs: Lung bases are clear. Liver: Liver attenuation is low. Negative for mass or abscess. The liver is large, 21 cm in length. Gallbladder and bile ducts: Hyperattenuating material present in the gallbladder, likely contrast from yesterday's exam. No inflammatory change. No ductal dilatation. Pancreas: Normal. No ductal dilation. Spleen: Normal. No splenomegaly. Adrenal glands: Normal. No mass. Kidneys and ureters: Normal. No hydronephrosis. Stomach and bowel: Stomach is collapsed. Small bowel is not dilated. Enteric contrast is administered for the today's exam, and extends through the small bowel and throughout the colon. There is marked wall thickening in the distal ileum, involving approximately 50 cm of the distal bowel. Wall thickening measures up to 0.9 cm. The abnormal wall thickening extends to the ileocecal valve. There is mild adjacent fat stranding and free fluid. The ileocecal valve is mildly hypertrophy. The colonic yusuf are normal in thickness, and there are no focal inflammatory changes in the colon. Appendix: Normal appendix. Intraperitoneal space: Mild free fluid noted in the pelvis and right pericolic gutter, mildly increased from yesterday. Negative for intraperitoneal free air. Negative for abscess. Para negative for portal venous gas. Vasculature: Negative for aneurysm. Mild vascular calcifications. Lymph nodes: Mild mesenteric lymphadenopathy noted in the right lower quadrant. Negative for suspicious retroperitoneal lymphadenopathy. Urinary bladder: Unremarkable as visualized. Reproductive: A soft tissue structure is again noted in the pelvis at the upper vagina between the bladder and rectum. This is unchanged from previous. Both ovaries are visible and appear normal, without cyst or mass. Bones/joints: Unremarkable. No acute fracture. Soft tissues: Negative for abdominal wall hernia or fluid collection. IMPRESSION: 1. Severe enteritis, distal/terminal ileum. Inflammatory bowel disease or infectious enteritis favored. Lymphoma or lymphoproliferative disease not excluded. Ischemia is not excluded, however there is no significant progression and no secondary signs to suggest ischemia such as pneumatosis or mesenteric venous gas. 2. Follow-up to imaging resolution or tissue diagnosis is recommended. The disease involves the terminal ileum, and may be accessible through colonoscopy. 3. Negative for bowel obstruction. 4. Mild increased fat stranding and free fluid from yesterday's exam. 5. Hepatic steatosis, severe. 6. Pelvic soft tissue mass may represent postoperative changes from subtotal hysterectomy and retention of the cervix. Correlate clinically for operative technique. If the cervix has been removed, a careful pelvic physical exam and pelvic MRI are recommended for mass characterisation. Transvaginal ultrasound may be of benefit, but may not add additional information over the CT. Dictated and Authenticated by: Jayesh Jerome MD. Ordering:ARIC Oropeza MD
[2021-10-25 19:29] VITALS: BP 131/78; PULSE 64; RESP 16; TEMP 36.8; O2SAT 94
[2021-10-27 00:33] LABS: Campylobacter PCR Negative (Negative); Salmonella PCR Negative (Negative); Shiga Toxin PCR Negative (Negative); Shigella/Enteroinvasive Ecoli Negative (Negative)
== END 2021-10-25 20:49 | disposition home or self-care (01) ==
PROVIDERS: Physician Assistant; Emergency Provider Nurse Practitioner Acute Care
DX: K52.9 Noninfective gastroenteritis and colitis, unspecified (principal)
CPT/HCPCS: 36415; 80053; 83690; 87505; 96374; 96375; 99284; 74176; 81003; 81015; 83605; 83630; 85025; 99283; J1885; J2405

== ENCOUNTER 2022-01-22 00:40 | Outpatient (CLI) | payer OTHER, SELFPAY ==
--- NOTE | 2022-01-22 07:45 | DI.MAMMO_ITS ---
Exam(s) MAMMO SCREENING EXAM: MAMMO SCREENING CLINICAL HISTORY: screening,Z12.39 TECHNIQUE: Mammograms were interpreted according to the usual protocol including computer analysis w [employer] CAD system, tomosynthesis and C-view imaging. COMPARISON: FINDINGS: The breasts are of moderate density. There are multiple focal areas of asymmetric density seen bilat erally. No prior films available come for comparison. No dominant mass or clumped microcalcificatio n seen. Focal areas of asymmetric density seen in the right breast on CC view both in the retroareolar portio n of the breast and in the lateral central portion of the breast, mass is not excluded at these sites . Additionally, on the MLO view of the right breast, there is a somewhat masslike radiodensity proje cted in the superior central portion of the breast. Additional mammographic views of each of these a reas is suggested to include spot compression views in CC and MLO projections. IMPRESSION: Additional mammographic views of the right breast requested as described above. Breast ultrasound re commended as well to exclude breast mass as described above. BI-RADS Category 0 - Assessment Incomplete: Need additional imaging evaluation Breast Density - Category B - Scattered areas of fibroglandular density
== END 2022-01-22 01:00 ==
PROVIDERS: PCP Family Medicine; Visit Provider Family Medicine
DX: Z12.31 Encounter for screening mammogram for malignant neoplasm of breast (principal)
CPT/HCPCS: 77063; 77067

== ENCOUNTER 2022-01-22 03:39 | Outpatient (CLI) | payer OTHER, SELFPAY ==
[2022-01-22 16:25] LABS: ALT 96 U/L (14-59); AST 63 U/L (15-37); Albumin 3.6 g/dL (3.4-5.0); Alkaline Phosphatase 68 U/L (46-116); Anion Gap 9.7 mmol/L (3-11); BUN 8 mg/dL (7-18); Bilirubin, Total 0.9 mg/dL (0.2-1.0); CO2 25.3 mmol/L (21.0-32.0); CREATININE 0.7 mg/dL (0.55-1.02); Calculated LDL 160 mg/dL (<100); Chloride 101 mmol/L (98-107); Cholesterol 251 mg/dL (<200); Glucose 122 mg/dL (74-106); HDL Cholesterol 47 mg/dL (40-60); Sodium 136 mmol/L (136-145); Total Protein 7.2 g/dL (6.4-8.2); Triglyceride 223 mg/dL (<150)
[2022-01-23 10:23] LABS: Hepatitis B Surface Ag Negative (Negative)
[2022-01-23 10:27] LABS: Hepatitis C Ab w Rflx HCV PCR Negative (Negative)
[2022-01-23 11:05] LABS: HIV-1/2 Ag & Ab Screen Negative (Negative)
[2022-01-23 11:24] LABS: Hep A Total Ab w Rflx IgM Negative (Negative)
== END 2022-01-22 03:40 | disposition home or self-care (01) ==
LOC: LBO 03:39
PROVIDERS: PCP Family Medicine; Visit Provider Family Medicine
DX: E78.5 Hyperlipidemia, unspecified (principal); I10 Essential (primary) hypertension; R74.8 Abnormal levels of other serum enzymes; Z11.59 Encounter for screening for other viral diseases; Z11.4 Encounter for screening for human immunodeficiency virus [HIV]
CPT/HCPCS: 36415; 80053; 80061; 86709; 86803; 87340; 87389

== ENCOUNTER 2022-02-01 02:04 | Outpatient (CLI) | payer OTHER, SELFPAY ==
--- NOTE | 2022-02-01 | DI.MAMMO_ITS ---
Exam(s) MG MAMMO SCREEN CALL BACK UNI US BREAST RT COMPLETE EXAM: MAMMO SCREEN CALL BACK UNI -RIGHT AND COMPLETE RIGHT BREAST ULTRASOUND CLINICAL HISTORY: ASYMMETRIC DENSITY RT BREAST. TECHNIQUE: Unilateral spot mammographic images obtained with 3D tomosynthesisand utilizing computer aided detection (CAD). . Complete RIGHT breast Ultrasound was also performed, including all 4 quadrants, the retroareolar randa on, and the ipsilateral axilla. COMPARISON: Prior mammogram of 2010 was reviewed. This additional imaging was performed due to fi ndings described on the recent screening mammogram of 01/22/2022. FINDINGS: DIAGNOSTIC RIGHT BREAST MAMMOGRAM: Additional mammographic views performed todayrender this area less concerning and similar in appearan ce to the 2011 images..There is a small benign-appearing nodular density in the upper outer quadrant which has appearance of a benign intramammary lymph node. COMPLETE RIGHT BREAST ULTRASOUND: Ultrasound performed today reveals no evidence of solid or significant cystic lesions in all 4 quadra nts of the right breast nor in the retroareolar region.. Right axilla is negative for significant ad enopathy. IMPRESSION: No radiographic evidence of malignancy. Negative complete right breast ultrasound. Appropriate follow-up is to keep this patient yearly mammogram schedule, with earlier imaging if a s elf detected breast changes noted.. The patient was informed of these findings and recommendations prior to leaving the department today. BI-RADS Category 2 - Benign Findings Breast Density - Category B - Scattered areas of fibroglandular density Breast density Category C or D implies that the patient has dense breast tissue. Dense breast tissue can make it harder to find cancer on a mammogram. Dense breast tissue is also associated with an incr eased risk of breast cancer. This information about the result of the mammogram report was provided to the patient to raise their awareness. Use this report when you speak with the patient about their risks for breast cancer, which includes their family history. At that time, you may recommend additional screening tests (Ultrasoun d or MRI) as these tests may add significant information. A negative radiographic report should not delay biopsy if a dominant or clinically suspicious mass is present. Up to ten percent of cancers are not identified on mammography. A negative report may reinforce clinical impression. Adenosis and dense breasts may obscure an underlying neoplasm. False positive reports average 6 to 10%. Patient will receive a letter notifying them of these results.
== END 2022-02-01 02:24 ==
LOC: DI 02:04
PROVIDERS: PCP Family Medicine; Visit Provider Family Medicine
DX: R92.8 Other abnormal and inconclusive findings on diagnostic imaging of breast (principal)
CPT/HCPCS: 76642; 77063; 77067

== ENCOUNTER 2023-02-19 07:35 | Day surgery (SDC) | payer OTHER, SELFPAY ==
--- NOTE | 2023-02-18 14:55 | W.SURGCON ---
Date of service: 02/19/23 Time of Service: 08:30 Assessment and Plan Assessment and plan (1) Screening for colon cancer: Status: Acute Assessment and plan: 52-year-old woman without symptoms due for screening colonoscopy. No increased risk factors. Overall plan: Screening colonoscopy History of Present Illness Narrative: The patient is a 52-year-old woman who is not having any symptoms and is overdue for screening colonoscopy. She does not have a family history of colon cancer. [facility] All Active Problems Enteritis (Acute) 10/2021-severe enteritis tr at ER at [facility] Obesity (Chronic) Hyperlipidemia (Acute) GERD (gastroesophageal reflux disease) (Chronic) hx of dysphagia, s/p EGD and dilation about 2014 at [facility] [place] Elevated liver enzymes (Acute) 01/2022-mildly elrevated transaminases [id number] liver Hyperglycemia (Acute) 01/2022, FBS-122 Screening for colon cancer (Acute) Medical History Prediabetes Surgical History H/O: hysterectomy (~09/2011) History of tonsillectomy Family History (Updated 01/16/23 @ 15:40 by Christy Hernández) Mother Hyperlipidemia Aneurysm Stroke Myocardial infarction Chronic kidney disease (CKD) Diabetes Hypertension Osteoporosis Social History Smoking/Tobacco Use Status: Never Second Hand Exposure: Yes Smoking risk assessment performed?: Yes Alcohol Intake: current Alcohol Intake frequency: a few times a week Alcohol type: wine Drug use: Never Substance use type: does not use Counseling given: No Household members: none Communication Needs: None Pets and animals: No Sexually active: Yes Do you think of yourself as: lesbian/dominguez/homosexual Current gender identity: female How often do you talk on the phone with friends or family?: three or more times per week How often do you get together with friends or relatives?: twice per week Do you belong to any clubs or organized social groups?: yes Panel score (0-1 are the most socially isolated patients): 2 Seatbelt use: always Helmet use: Yes Helmet use: always Drive intox or ride w/intox local driver: No Do you feel safe at home: Yes Do you feel safe in your relationship?: Yes Exam Narrative Exam Narrative: General: Nontoxic, comfortable and interactive Neuro: Alert and oriented x3 Psych: Appropriate mood and affect, good insight and understanding into her condition Chest: Nonlabored breathing and no wheezing Heart: Regular
--- NOTE | 2023-02-18 14:58 | COLE_ITS ---
Date of service: 02/19/23 Time of Service: 09:00 Colonoscopy Report Procedure Description: Procedures performed: 1. Colonoscopy with cold forceps polypectomy Preoperative diagnosis: Screening colonoscopy Postoperative diagnosis: Colon polyp, sigmoid diverticulosis, grade 1 internal hemorrhoids Surgeon: Mesha Paris Anesthesia: Rogelio Indication for procedure: Patient is a 52-year-old woman without symptoms and without significantly increased risk factors due for screening colonoscopy. Findings: A very small polyp was seen in the descending colon and removed with cold forceps technique. Scattered diverticuli are present in the sigmoid colon. Mild grade 1 internal hemorrhoids are noted on retroflexion. Surveillance/follow-up recommendations: 3-10 years. Sessile serrated or villous histology (not suspected) would warrant 3 years. Small adenoma would warrant 7- 10 years and a hyperplastic polyp would warrant 10 years. Complications: None Blood loss: Minimal Specimens:?? Yes Quality of Prep:?? Good Procedure in detail: Written consent was obtained from the patient who was in agreement with the risks, benefits and indications of the procedure.? We went to the endoscopy suite and laid the patient in left lateral decubitus position.? Anesthesia was administered which was tolerated well.? A timeout was performed and when we are all in agreement we began the procedure. Digital rectal exam and visual examination was performed and within normal jacobs its.? A well?lubricated colonoscope was advanced without difficulty all the way to the cecum identified by the ileocecal valve, and triangular folds and appendiceal orifice.? It was then slowly withdrawn.?? Retroflexion was performed in the rectum.? The findings/interventions are noted above. The scope was then removed and the patient tolerated the procedure well and was then taken back to the PACU in hemodynamically stable condition.
[2023-02-19 07:47] VITALS: BP 134/76; PULSE 71; RESP 16; TEMP 36.4; O2SAT 96
--- NOTE | 2023-02-19 08:05 | W.ANESPRE ---
General Info Date of Service Date Performed: 02/19/23 Height: 5 ft 3 in Weight: 80.9 kg Body Mass Index (BMI): 31.6 Surgical Procedure: Operation Date: 02/19/23 09:05 Proposed Procedure Side Surgeon p Leeroy Paris MD Meds Allergies and Home Medications Allergies Allergy/AdvReac Type Severity Reaction Status Date / Time No Known Allergies Allergy Verified 02/18/23 11:26 Home Medication Medication Instructions Recorded omeprazole 10 mg capsule,delayed 10 mg PO DAILY 10/24/21 release bisacodyl 5 mg tablet,delayed 5 mg PO ONCE #4 tabs 11/28/22 release (Dulcolax (bisacodyl)) polyethylene glycol 3350 17 17 g PO ONCE #238 grams 11/28/22 gram/dose oral powder atorvastatin 20 mg tablet 20 mg PO DAILY #90 tabs 01/13/23 metformin 500 mg tablet 500 mg PO DAILY #90 tabs 01/13/23 Current Visit Medications: Current Medications Generic Name Dose Route Start Last Admin Trade Name Freq PRN Reason Stop Dose Admin Ringer's Solution 1,000 mls @ 80 mls/hr 02/19/23 06:00 IV 03/20/23 23:59 INFUSION SARA IV Miscellaneous Supplies 1 each 02/19/23 06:00 Iv Access IV 03/20/23 23:59 DIRECTED SARA Sodium Chloride 0 ml 02/19/23 06:00 Normal Saline Flush 10 Ml Syr IV 03/20/23 23:59 PRN PRN Sodium Chloride 0 ml 02/19/23 06:00 Normal Saline 10 Ml Vial IJ 03/20/23 23:59 DIRECTED PRN Sterile Water 0 ml 02/19/23 06:00 Water,Injection,Sterile 10 Ml Vial IJ 03/20/23 23:59 DIRECTED PRN PFSH Active Problems Active Problems: Problem Status Onset Code Enteritis K52.9 Obesity E66.9 Hyperlipidemia E78.5 GERD (gastroesophageal reflux disease) K21.9 Elevated liver enzymes R74.8 Hyperglycemia R73.9 Screening for colon cancer Z12.11 Medical History Medical History Prediabetes Surgical History Surgical History H/O: hysterectomy (~09/2011) History of tonsillectomy Tobacco Smoking/Tobacco Use Status: Never Passive smoking exposure: Yes Second hand exposure: Yes Alcohol Alcohol Intake: current Alcohol intake frequency: a few times a week Alcohol type: wine Substance Use Substance use: Never Substance use type: does not use Vital Signs and Lab Results Vital Signs Most Recent Vital Signs in EMR: Most Recent Vital Signs Temp Pulse Resp BP Pulse Ox 36.4 C L 71 16 134/76 96 02/19/23 07:47 02/19/23 07:47 02/19/23 07:47 02/19/23 07:47 02/19/23 07:47 Point of Care Results Point of Care Results: Finger Stick Blood Glucose 135 02/19/23 07:53 Lab Results Blood Type / Crossmatch: No Data to Display Complete Blood Count: No Data to Display Complete Metabolic Panel: No Data to Display Liver Function Panel: No Data to Display Coagulation Panel: No Data to Display Cardiac Panel: No Data to Display Arterial Blood Gas: No Data to Display Venous Blood Gas: No Data to Display Pancreas Panel: No Data to Display Thyroid Panel: No Data to Display Infectious Disease: No Data to Display Blood Cultures: No Data to Display Toxicology Panel: No Data to Display Panel: No Data to Display Anesthesia Assessment and Plan Anesthesia History Personal History: No History of Anesthesia Complications Family History: No Family History of Anesthesia Complications and Other Exercise Tolerance Exercise Tolerance: Metabolic Equivalents>4 Pertinent Negatives Pertinent Negatives: No Symptoms of GERD ( med controlled) Cardiac & Pulmonary Exam Cardiac Exam: Normal S1/S2 Heart Sounds Pulmonary Exam: Clear Bilateral Breath Sounds Implantable Cardiac Device Does patient have a Pacemaker or an ICD?: No Airway Exam Known Difficult Airway: No Mallampati Class: 2 Mouth Opening: Normal (> 3cm) Thyromental Distance: Greater than 3 cm Neck Range of Motion: Full ROM Neck Circumference: Normal Teeth Condition: Normal Dentition ASA Classification ASA Score: ASA 2 Emergency Case?: No NPO Status NPO Status: NPO Clears >2 hours, Solids >8 hours Status Status: Not Relevant due to Medical History Anesthesia Plan Resuscitation Status: Full Code Anesthesia Technique: General Anesthesia Airway Planned: Natural Airway Monitors Used: Standard Monitors
[2023-02-19] MEDS: Lactated Ringers 1,000 ML 80 ML IV (08:16)
[2023-02-19 08:36] VITALS: BMI 31.6
--- NOTE | 2023-02-19 09:40 | BOWEL_PTH ---
PATIENT: Elsie Dunn LOC: [facility] U#:[id number] AGE/SX: 52/F ROOM: RE02/19/[address]: Francisco Javier Gilbert MD : 1970 BED: DIS: 02/19/2023 SPEC #: [id number] RECD: 02/19/23 12:46 STATUS: BR[facility]LEY REQ #: [id number] KDOY: 02/19/23 09:[address]: Francisco Javier Gilbert DEPT: Surgical Specimen RECD BY: Justine Rivas ENTERED: 02/19/23 12:46 SP TYPE: Bowel OTHR DR: Nael Diop DNP Tissues: 1 - BIOPSY BOWEL Procedures: GROSS AND MICRO LEVEL 4 Comments: [id number]
[2023-02-19 09:52] VITALS: BP 109/62; PULSE 73; RESP 16; TEMP 36.4; O2SAT 97
--- NOTE | 2023-02-19 10:18 | W.ANESPOSTOP ---
Postoperative Evaluation Date, Time and Location Date Performed: 02/19/23 Time Performed: 10:00 Patient Location: Day Surgery Unit Vital Signs Most Recent Imported Vital Signs: Most Recent Vital Signs Temp Pulse Resp BP Pulse Ox 36.4 C L 73 16 109/62 97 02/19/23 09:52 02/19/23 09:52 02/19/23 09:52 02/19/23 09:52 02/19/23 09:52 Pain Score Most Recent Pain Score: Most Recent Pain Score Pain Level 0 02/19/23 09:52 Assessment Mental Status: Awake (Alert & Oriented to Patient Baseline) Airway and Respiratory Function: Patent airway with normal (patient baseline) respiratory exam Cardiovascular Function: Hemodynamically Stable Hydration Status: Adequately Hydrated Nausea & Vomiting: No Nausea or Vomiting Pain: Pt. Denies Any Pain Peripheral Nerve Block: Patient did not receive a nerve block
[2023-02-19 10:22] VITALS: BP 146/62; PULSE 63; RESP 16; TEMP 36.5; O2SAT 100
== END 2023-02-19 10:52 | disposition home or self-care (01) ==
PROVIDERS: Student in an Organized Health Care Education/Training Program; PCP Nurse Practitioner Family; Visit Provider Surgery
PROC: 0DJD8ZZ Inspection of Lower Intestinal Tract, Via Natural or Artificial Opening Endoscopic (ICD-10-PCS; CPT 45378; principal; 2023-02-19 09:00)
DX: Z12.11 Encounter for screening for malignant neoplasm of colon (principal); K63.5 Polyp of colon; K57.30 Diverticulosis of large intestine without perforation or abscess without bleeding; K64.0 First degree hemorrhoids
CPT/HCPCS: 45380; 88305

== ENCOUNTER 2023-05-09 00:16 | Outpatient (CLI) | payer OTHER, SELFPAY ==
--- NOTE | 2023-05-09 08:30 | DI.MAMMO_ITS ---
Exam(s) MAMMO SCREENING EXAM: MAMMO SCREENING CLINICAL HISTORY: screening.Z12.39. TECHNIQUE: Bilateral full field digital CC and MLO mammographic images were obtained with 3D tomosyn thesis and utilizing computer aided detection (CAD). COMPARISON: Prior mammograms were reviewed. Prior ultrasound of January 2022 also reviewed. FINDINGS: There has been no significant change in the appearance and distribution of the fibroglandular tissue. Asymmetric tissue in the right breast is unchanged from prior study. There are no new spiculated masses nor malignant appearing microcalcification groups. There is no significant architectural distortion nor skin thickening-retraction. IMPRESSION: No radiographic evidence of malignancy. BI-RADS Category 1 - Negative Breast Density - Category B - Scattered areas of fibroglandular density Breast density Category C or D implies that the patient has dense breast tissue. Dense breast tissue can make it harder to find cancer on a mammogram. Dense breast tissue is also associated with an incr eased risk of breast cancer. This information about the result of the mammogram report was provided to the patient to raise their awareness. Use this report when you speak with the patient about their risks for breast cancer, which includes their family history. At that time, you may recommend additional screening tests (Ultrasoun d or MRI) as these tests may add significant information. A negative radiographic report should not delay biopsy if a dominant or clinically suspicious mass is present. Up to ten percent of cancers are not identified on mammography. A negative report may reinforce clinical impression. Adenosis and dense breasts may obscure an underlying neoplasm. False positive reports average 6 to 10%. Patient will receive a letter notifying them of these results.
== END 2023-05-09 00:36 ==
LOC: DI 00:18
PROVIDERS: PCP Nurse Practitioner Family; Visit Provider Nurse Practitioner Family
DX: Z12.31 Encounter for screening mammogram for malignant neoplasm of breast (principal)
CPT/HCPCS: 77063; 77067

== ENCOUNTER 2023-09-23 16:02 | Outpatient (REF) | payer OTHER, SELFPAY ==
[2023-09-23 22:05] LABS: Hemoglobin A1C 6.5 % (<5.7)
[2023-09-23 22:25] LABS: ALT 50 U/L (14-59); AST 35 U/L (15-37); Albumin 4.2 g/dL (3.4-5.0); Alkaline Phosphatase 67 U/L (46-116); Anion Gap 12.2 mmol/L (3-11); BUN 5 mg/dL (7-18); CO2 23.8 mmol/L (21.0-32.0); CREATININE 0.9 mg/dL (0.55-1.02); Calcium 9.5 mg/dL (8.5-10.1); Calculated LDL 175 mg/dL (<100); Chloride 104 mmol/L (98-107); Cholesterol 272 mg/dL (<200); Estimated GFR 75.97 (mL/min/1.73m2); Glucose 104 mg/dL (74-106); HDL Cholesterol 52 mg/dL (40-60); Potassium 4.5 mmol/L (3.5-5.1); Sodium 140 mmol/L (136-145); Total Protein 7.4 g/dL (6.4-8.2); Triglyceride 226 mg/dL (<150)
== END 2023-09-23 16:03 | disposition home or self-care (01) ==
LOC: LBN 16:02
PROVIDERS: PCP Nurse Practitioner Family; Visit Provider Nurse Practitioner Family
DX: E11.9 Type 2 diabetes mellitus without complications (principal); E78.5 Hyperlipidemia, unspecified; I10 Essential (primary) hypertension; R74.8 Abnormal levels of other serum enzymes
CPT/HCPCS: 80053; 80061; 83036

== ENCOUNTER 2024-01-14 17:03 | Outpatient (REF) | payer OTHER, SELFPAY ==
--- NOTE | 2024-01-14 14:10 | PAPFT_PTH ---
PATIENT: Elsie Dunn LOC: [facility] U#:[id number] AGE/SX: 53/F ROOM: RE01/14/[address]: Nael Diop DNP : 1970 BED: DIS: 01/14/2024 SPEC #: [id number] RECD: 01/15/24 12:47 STATUS: BR[facility]LEY REQ #: [id number] KODY: 01/14/24 14:[address]: Nael Vargas DEPT: [facility] Cytology RECD BY: Justine Rivas Tissues: 1 - CX/ENDOCX FOR PAP SMEARS Procedures: PAP THIN PREP/UVM Screening HPV DNA PROBE Comments: [id number]
== END 2024-01-14 17:04 | disposition home or self-care (01) ==
LOC: LBN 17:03
PROVIDERS: PCP Nurse Practitioner Family; Visit Provider Nurse Practitioner Family
DX: Z01.419 Encounter for gynecological examination (general) (routine) without abnormal findings (principal)
CPT/HCPCS: 88142; 87624

== ENCOUNTER 2024-05-11 16:04 | Outpatient (REF) | payer OTHER, SELFPAY ==
[2024-05-11 20:54] LABS: Anion Gap 12.6 mmol/L (3-11); BUN 6 mg/dL (7-18); CO2 22.4 mmol/L (21.0-32.0); CREATININE 0.7 mg/dL (0.55-1.02); Calcium 9.4 mg/dL (8.5-10.1); Chloride 104 mmol/L (98-107); Estimated GFR 102.07 (mL/min/1.73m2); Glucose 120 mg/dL (74-106); Potassium 4.9 mmol/L (3.5-5.1); Sodium 139 mmol/L (136-145)
== END 2024-05-11 16:05 | disposition home or self-care (01) ==
LOC: LBN 16:04
PROVIDERS: PCP Nurse Practitioner Family; Visit Provider Nurse Practitioner Family
DX: I10 Essential (primary) hypertension (principal)
CPT/HCPCS: 80048

== ENCOUNTER 2025-01-24 21:34 | Outpatient (REF) | payer OTHER, SELFPAY ==
[2025-01-24 21:46] LABS: HCT 41.4 % (36.0-46.0); HGB 14.2 g/dL (11.2-15.7); MCH 32.1 pg (27.0-33.0); MCHC 34.3 % (32.0-36.0); MCV 94 fL (80-95); Platelet Count 283 10^3/uL (130-400); RBC 4.43 10^6/uL (3.93-5.22); WBC 7.14 10^3/uL (4.4-10.8)
[2025-01-24 22:04] LABS: ALT 45 U/L (14-59); AST 37 U/L (15-37); Albumin 3.8 g/dL (3.4-5.0); Alkaline Phosphatase 88 U/L (46-116); Anion Gap 9.8 mmol/L (3-11); BUN 7 mg/dL (7-18); Bilirubin, Total 0.98 mg/dL (0.2-1.0); CO2 26.2 mmol/L (21.0-32.0); CREATININE 0.7 mg/dL (0.55-1.02); Calcium 9.8 mg/dL (8.5-10.1); Calculated LDL 155 mg/dL (<100); Chloride 105 mmol/L (98-107); Cholesterol 243 mg/dL (<200); Estimated GFR 102.07 (mL/min/1.73m2); Glucose 153 mg/dL (74-106); HDL Cholesterol 50 mg/dL (>or=50); Potassium 4.3 mmol/L (3.5-5.1); Sodium 141 mmol/L (136-145); Total Protein 7.3 g/dL (6.4-8.2); Triglyceride 191 mg/dL (<150)
== END 2025-01-24 21:35 | disposition home or self-care (01) ==
LOC: LBN 21:34
PROVIDERS: PCP Nurse Practitioner Family; Visit Provider Nurse Practitioner Family
DX: E11.9 Type 2 diabetes mellitus without complications (principal); K21.9 Gastro-esophageal reflux disease without esophagitis; R53.83 Other fatigue; I10 Essential (primary) hypertension; R74.8 Abnormal levels of other serum enzymes
CPT/HCPCS: 80053; 80061; 85027; 84443

== ENCOUNTER 2025-08-01 10:55 | Outpatient (CLI) | payer OTHER, SELFPAY ==
--- NOTE | 2025-08-01 05:45 | DI.MRI_ITS ---
Exam(s) MR BRAIN WO EXAM: MR BRAIN WO CLINICAL HISTORY: right sided new headache, paresthesia,r51.9,r20.2 TECHNIQUE: Multiplanar multisequence MRI of the brain was performed. COMPARISON: MR MR HEAD W/WO CONTRAST from 08/21/2016 from outside institution FINDINGS: CEREBRAL PARENCHYMA: There is no evidence of intracranial hemorrhage, mass effect, or shift of midline structures. There are no extra-axial fluid collections. Ventricles are not enlarged or shifted. There is no significant focal signal abnormality in the cerebellar hemispheres nor within the sharon, midbrain, and thalami. There are few bilateral foci of FLAIR bright sub cm signal abnormality in the cash- ventricular white matter, not associated with hemorrhage, surrounding edema, nor restricted diffusion. There is no significant focal signal abnormality evident on diffusion imaging to suggest acute ischemic event. SWI reveals no evidence of microhemorrhages. PITUITARY GLAND: No mass nor parasellar abnormality. No obvious abnormality in the cavernous sinuses. FLOW VOIDS: The expected flow void are noted. No evidence of obvious aneurysm nor obvious vascular malformation. Right vertebral artery is dominant. PARANASAL SINUSES: The visualized paranasal sinuses appear unremarkable. No obvious finding ORBITS: No obvious findings. IMPRESSION: There are multiple small foci of FLAIR bright signal abnormality in the periventricular white matter which are not associated with hemorrhage, surrounding edema, nor restricted diffusion and most probably related to chronic small vessel ischemic changes. No evidence of acute infarct. DATA REPOSITORY:
== END 2025-08-01 11:15 ==
PROVIDERS: PCP Nurse Practitioner Family; Visit Provider Nurse Practitioner Family
DX: R51.9 Headache, unspecified (principal); R20.2 Paresthesia of skin
CPT/HCPCS: 70551